=== PATIENT | male | born 1945 | race Caucasian/White ===

== ENCOUNTER 2020-09-04 11:35 | Outpatient (RCR) | payer MEDICARE, OTHER ==
[2020-11-22] MEDS ORDERED: LISI20TA26 PO (12:59)
[2020-11-29] MEDS ORDERED: ACET1TAB43 PO (10:32)
[2020-11-29] MEDS ORDERED: CIPR-226 PO (10:33)
== END 2020-12-03 | disposition home or self-care (01) ==
LOC: ONC 11:35
PROVIDERS: ATTEND Radiology Radiation Oncology
DX: C61 Malignant neoplasm of prostate (principal); E03.9 Hypothyroidism, unspecified; E78.5 Hyperlipidemia, unspecified
CPT/HCPCS: 76873; G0463; 99205

== ENCOUNTER → 2020-09-19 | Outpatient (CLI) | payer MEDICARE, OTHER ==
[~2020-09-19] MED LIST: IOHEXOL 350 MG/ML 100 ML (OMNIPAQUE 350) VIAL IV ONE
[2020-09-19 10:17] LABS: CREATININE SERUM 1.25 MG/DL (0.60-1.30)
[2020-09-19] MEDS: CATHETER FLUSH 10 ML SYR IV PRN ×2 (10:23→10:30)
--- NOTE | 2020-09-19 11:02 | Diagnostic Imaging Report ---
EXAMINATION: CT chest, abdomen and pelvis with intravenous contrast. TECHNIQUE: Multiple contiguous axial images were obtained through the chest, abdomen and pelvis after the uneventful administration of intravenous contrast. All CT scans use one or more of the following dose optimizing techniques: automated exposure control, MA and/or KvP adjustment based on patient size and exam type or iterative reconstruction. HISTORY: Prostate cancer. COMPARISON: None available. FINDINGS: There is no edema or pneumonia. No pleural effusion. No pneumothorax. No suspicious nodules. There is scarring or atelectasis in the left upper lobe. There is no axillary or supraclavicular lymphadenopathy. There is no mediastinal lymphadenopathy. Heart size is normal. There are moderate coronary artery calcifications. No pericardial effusion. 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 The liver is normal without focal lesion. There is no biliary ductal dilation. There is a small stone in the gallbladder. There is a vague area of high attenuation in the pancreatic head best seen on coronal series 601, image 26. No pancreatic ductal dilation. Spleen is normal. Adrenal glands are normal. There is an indeterminate 16 mm right lower pole renal lesion with an attenuation of 25 Hounsfield units. Simple cyst is seen in the right pelvis zone. There is no hydronephrosis. Urinary bladder is normal. Visualized bowel is normal in caliber without obstruction or inflammation. No free fluid or air. No abdominal or pelvic lymphadenopathy. Aorta is normal in caliber without aneurysm. There are no suspicious osseous lesions. IMPRESSION: 1. No metastatic disease seen in the chest, abdomen or pelvis. 2. Indeterminate vague area of high attenuation in the pancreatic head, pancreas protocol CT recommended for further evaluation. 3. Right lower pole renal lesion is indeterminate, sonogram to be performed to evaluate if this is a cyst, otherwise it could potentially be seen on the pancreas protocol CT indeterminate if there is enhancement. Dictated by: Dictated on workstation # [id number]
--- NOTE | 2020-09-19 14:11 | Diagnostic Imaging Report ---
INDICATION: Prostate cancer. TECHNIQUE: The patient received a 27.3 mCi intravenous dose of technetium 99M MDP. Three hours later, whole-body planar imaging was performed. COMPARISON: The study is interpreted in correlation with the CT chest, abdomen, and pelvis performed on 09/19/2020. FINDINGS: There is no suspicious uptake in the axial or appendicular skeleton. There are mild arthritic changes to the left greater than right knees, bilateral ankles, and bilateral shoulders. The sternomanubrium and ribs are unremarkable. The calvarium is unremarkable. The soft tissue uptake and excretion of radiopharmacy by urinary tracts are unremarkable. IMPRESSION: No bone scan evidence for osseous metastasis. Dictated by: Dictated on workstation # [id number]
== END ==
LOC: CARD 09:47
PROVIDERS: ATTEND Nurse Practitioner Family
DX: C61 Malignant neoplasm of prostate (principal)
CPT/HCPCS: 71260; 74177; 78306; 82565; 84520; A9503; 36415

== ENCOUNTER → 2020-09-26 | Outpatient (CLI) | payer MEDICARE ==
[~2020-09-26] MED LIST changes: +CATHETER FLUSH 10 ML SYR IV PRN; +HOLD METFORMIN - RECEIVED CONTRAST 20 ML VIAL IV SCH; +NS 100 ML (IVPB) BAG IV ONE
--- NOTE | 2020-09-26 15:09 | Diagnostic Imaging Report ---
PROCEDURE: CT abdomen with and without contrast. TECHNIQUE: Multiple contiguous axial CT images of the abdomen were obtained prior to and after intravenous administration of iodinated contrast. Auto Exposure Controls were utilized during the CT exam to meet ALARA standards for radiation dose reduction. INDICATION: Patient has a history of prostate cancer, recent CT performed 09/19/2020 showed a vague region of elevated density and enhancement in the pancreatic head. Patient returns for dedicated multiphase pre- and [id number] pancreatic protocol CT. FINDINGS: Most conspicuous on the initial arterial phase images is a ring-enhancing mass within the pancreatic head at the uncinate process measuring a diameter of 10.6 mm. At the portal venous phase, this shows homogeneous enhancement and is hyperdense to the remaining pancreatic parenchyma. Prior to contrast, this lesion is imperceptible, and on the recent CT, a 6-minute delayed hepatovenous phase acquisition shows the lesion to be imperceptible as well. Findings are suspicious for a hypervascular lesion such as a pancreatic neuroendocrine tumor. Correlate with any endocrinopathy. Vascular abnormality such as cavernous hemangioma is very rare in the pancreas but have been reported. There was no associated pancreatic parenchymal volume loss or appreciable mass effect. No pancreatic or biliary ductal dilatation. There are some stones adherent to the gallbladder wall versus a partial gallbladder wall mural calcification. The biliary system is otherwise normal. The liver was normal. There is no adrenal mass. The kidneys are unobstructed. The atherosclerotic aorta is nonaneurysmal. There is no ascites, abscess, hematoma, or acute fluid collection. There is no mesenteric or retroperitoneal lymphadenopathy. IMPRESSION: 1. Hypervascularized ring-enhancing lesion in the pancreatic head uncinate process without a detectable mass effect, ductal dilatation, or parenchymal atrophy. Lesion essentially follows vascular contrast density on each phase. Correlate with any endocrinopathy as an islet cell tumor or neuroendocrine tumor could not be excluded. As an additional possibility, this could reflect a vascular lesion such as hemangioma or other nonneoplastic vascular abnormality. 2. No evidence of metastatic disease. Focal gallbladder mural calcification versus more likely layering tiny dependent stones without evidence for acute cholecystitis. Dictated by: Dictated on workstation # [id number]
== END ==
LOC: RAD 14:45
PROVIDERS: ATTEND Radiology Radiation Oncology
DX: K86.89 Other specified diseases of pancreas (principal); R93.5 Abnormal findings on diagnostic imaging of other abdominal regions, including retroperitoneum; Z85.46 Personal history of malignant neoplasm of prostate
CPT/HCPCS: 74170

== ENCOUNTER 2020-11-22 05:34 | Outpatient (CLI) | payer MEDICARE ==
[~2020-11-22] VITALS: Ht 162 cm; Wt 61.0 kg
[2020-11-22] MEDS ORDERED: LISI20TA26 PO (12:59)
== END 2020-11-22 13:11 | disposition home or self-care (01) ==
LOC: PREOP 05:34
PROVIDERS: ATTEND Specialist
DX: Z01.818 Encounter for other preprocedural examination (principal)

== ENCOUNTER 2020-11-29 09:23 | Day surgery (SDC) | payer MEDICARE ==
[~2020-11-29] VITALS: Ht 162 cm; Wt 61.0 kg
[2020-11-29] VITALS (10 sets, daily range): BP systolic 103–142; BP diastolic 62–90
[~2020-11-29 09:23] MED LIST changes: -CATHETER FLUSH 10 ML SYR IV PRN; -HOLD METFORMIN - RECEIVED CONTRAST 20 ML VIAL IV SCH; -IOHEXOL 350 MG/ML 100 ML (OMNIPAQUE 350) VIAL IV ONE; +LISI20TA26 PO; -NS 100 ML (IVPB) BAG IV ONE
--- OUTSIDE RECORDS SUMMARY | 2020-11-29 09:27 | XMS REPORT | Clinical Summary ---
Author Author Marisela Dumont [place] Address Unknown Phone Unavailable Care Team Providers Care Sales And Marketing Administrator Name Role Phone Sherman Laureano MD PP Allergies No known active allergies Medications End Date Status Medication Sig Dispensed Refills Start Date Active lisinopril Take 20 mg by 0 (PRINIVIL,ZESTRIL) 20 mg mouth 2 (two) 8 tablet times per day. Active chlorthalidone (HYGROTON) Take 0.5 15 tablet 3 25 mg tablet tablets (12.5 9 mg total) by mouth 1 (one) time each day. Active pantoprazole (PROTONIX) Take 1 tablet 30 tablet 3 40 mg EC tablet (40 mg total) 9 by mouth 1 (one) time each day. Active Problems Problem Noted Date Abnormal nuclear cardiac imaging test 12/01/2018 Personal history of tobacco use 11/06/2018 Gastroesophageal reflux disease without esophagitis 11/06/2018 Arthritis of knee 10/29/2018 Mild chronic obstructive pulmonary disease 9 Osteoarthritis 10/29/2018 Essential hypertension 10/28/2018 Social History Date Tobacco Use Types Packs/Day Years Used Current Every Day Smoker Sex Assigned at Date Recorded Not on file Last Filed Vital Signs Reading Time Taken Comments Vital Sign 150/78 12/31/2018 1:01 PM CDT Blood Pressure 74 12/31/2018 12:53 PM CDT Pulse - - Temperature 16 12/31/2018 12:53 PM CDT Respiratory Rate - - Oxygen Saturation - - Inhaled Oxygen Concentration 63.6 kg (140 lb 3.2 oz) 12/31/2018 12:53 PM CDT Weight 162.6 cm (5' 4") 12/31/2018 12:53 PM CDT Height 24.07 12/31/2018 12:53 PM CDT Body Mass Index Plan of Treatment Health Maintenance Due Date Last Done Comments CT Colonography 1946 Cologuard 1945 Colonoscopy 1945 Colorectal Cancer 1945 Screening Lipid Panel 1946 Medicare Wellness 1945 MMR Vaccines (1 of 1 - 1947 Standard series) Varicella Vaccines (1 of 1947 2 - 2-dose childhood series) Pneumococcal 65+ Yr (1 of 02/09/1952 2 - PPSV23) COVID-19 Vaccine (1) 1958 Depression Screening 1958 DTaP,Tdap,and Td Vaccines 1965 (1 - Tdap) FOBT/FIT 1991 Sigmoidoscopy 1991 Zoster Vaccines (1 of 2) 02/09/1996 Abdominal Aortic Aneurysm 2011 (AAA) Screen Glaucoma Screening 65+ Yr 2011 Influenza Vaccine (#1) 2020 12/09/2017 HIB Vaccines Aged Out No longer eligible based on patient's age to complete this topic HPV Vaccines Aged Out No longer eligible based on patient's age to complete this topic Hepatitis A Vaccines Aged Out No longer eligibl e based on patient's age to complete this topic Hepatitis B Vaccines Aged Out No longer eligibl e based on patient's age to complete this topic IPV Vaccines Aged Out No longer eligible based on patient's age to complete this topic Meningococcal Vaccine Aged Out No longer eligib le based on patient's age to complete this topic Results Not on filefrom Last 3 Months Insurance Type Payer Benefit Subscriber ID Effective Phone Address Plan / Dates Group MEDICARE MEDICARE [id number] 2008- 2020 PART A AND Present [address] [place] [phone] [facility] [id number] 2018-P [address] [facility] [place] [facility] [place] [address] Advance Directives Patient Agile Test Lead Explanation Type Date Recorded Advance Directives and Living Will Power of Center Customer Service Associate Care Teams Start Date End Date Sales And Marketing Administrator Relationship Specialty 08/13/18 Sherman Laureano MD PCP - General Pediatrics [address] [place], [place] [id number]
[2020-11-29] MEDS: LACTATED RINGERS 1,000 ML IV PRN ×2 (09:54→13:17)
--- NOTE | 2020-11-29 10:31 | Progress Note-Pre Operative ---
Pre-Operative Progress Note H&P Reviewed The H&P was reviewed, patient examined and no changes noted. Date Seen by Provider: Nov 29, 2020 Time Seen by Provider: 10: Date H&P Reviewed: Nov 29, 2020 Time H&P Reviewed: :30 Pre-Operative Diagnosis: Prostate cancer cT2b, PSA 12.4, [place] 7 (3+4) SAAD LANDON MD Nov 29, 2020 10:31
[2020-11-29] MEDS ORDERED: ACET1TAB43 PO (10:32)
[2020-11-29] MEDS ORDERED: CIPR-226 PO (10:33)
--- NOTE | 2020-11-29 10:35 | Discharge Inst-Simple/Standard ---
Discharge Inst-Standard Reconcile Patient Problems Problems Reviewed?: Yes Discharge Medications New, Converted or Re-Newed RX: RX Given to Pt/Family Patient Instructions/Follow Up Plan of Care/Instructions/FU: 1)One month post implant scan at [facility] cancer center 12/27/20 at 9:00 a.m. 2)One month follow up with Dr. Camarena 12/26/20 at 1:15 p.m. Activity as Tolerated: Yes Discharge Diet: No Restrictions Other Inst to Patient Please instruct patient on catheter care and removal on Friday12/04/20 in the morning. SAAD LANDON MD Nov 29, 2020 10:35
[2020-11-29] MEDS ORDERED: BACITRACIN OINTMENT 28 GM TUBE ONE (11:27)
[2020-11-29] MEDS ORDERED: SEVOFLURANE (ULTANE) 15 ML INHAL SOLN ONE ×2 (11:54→13:07)
[2020-11-29] MEDS ORDERED: fentaNYL INJ 100 MCG/2 ML AMP ONE (11:54)
[2020-11-29] MEDS ORDERED: proPOfol 200 MG/20 ML (DIPRIVAN) VIAL IV ONE (11:54)
[2020-11-29] MEDS ORDERED: ONDANSETRON 4 MG/2 ML (SDV) Z0FRAN ONE (11:54)
[2020-11-29] MEDS ORDERED: MIDAZOLAM 2 MG/2 ML (VERSED) VIAL ONE (11:55)
[2020-11-29] MEDS ORDERED: PHENYLEPHRINE 100 MCG/ML 10 ML (ANESTHESIA) SYR ONE (12:50)
[2020-11-29] MEDS ORDERED: IOPAMIDOL 61% 30 ML (ISOVUE 300) VIAL URETERAL ONE (13:05)
--- NOTE | 2020-11-29 13:25 | Progress Note-Post Operative ---
Post-Operative Progess Note Surgeon (s)/Endless Belt Finisher (s) Surgeon SAAD LANDON MD Endless Belt Finisher: Best CRISTOBAL MD Pre-Operative Diagnosis Prostate cancer cT2b, PSA 12.4, [place] 7 (3+4) Post-Operative Diagnosis Same as pre-op Procedure & Operative Findings Date of Procedure 11/29/20 Procedure Performed/Findings (1) 67% Cesium 131 permanent prostate seed implant (2) Injection of biodegradable hydrogel prostate-rectal spacer utilizing the Vquencee system (3) Cystogram Prostate volume 24.3 cc Anesthesia Type General Estimated Blood Loss Estimated blood loss (mL): Minimal Specimens/Packing Specimens Removed None Packing: None SAAD LANDON MD Nov 29, 2020 13:24
[2020-11-29] MEDS ORDERED: HYDROmorphone 2 MG/ML VIAL (DILAUDID) IV ONE (13:30)
[2020-11-29] MEDS ORDERED: ONDANSETRON 4 MG/2 ML (SDV) Z0FRAN IVP PRN (13:30)
--- NOTE | 2020-11-29 13:54 | Diagnostic Imaging Report ---
INDICATION: Brachytherapy. COMPARISON: CT dated 09/26/2020. TOTAL FLUORO TIME: 9 seconds. TOTAL NUMBER OF FLUOROSCOPIC IMAGES SAVED: 1 FINDINGS: Fluoroscopic guidance was provided intraoperatively during brachytherapy. Fluoroscopic image provided shows multiple metallic radiation seeds projecting over the lower midline pelvis. Indwelling Hunter catheter is identified, as is contrast within the urinary bladder. Please note, interpreting radiologist was not present during the procedure. IMPRESSION: 1. Fluoroscopic guidance provided intraoperatively as above. Dictated by: Dictated on workstation # [id number]
[2020-11-29] MEDS ORDERED: APAP 300 MG/CODEINE 30 MG (TYLENOL #3) TAB PO ONE (15:00)
--- NOTE | 2020-11-29 15:13 | Anesthesia-General Post-Op ---
General Patient Condition Mental Status/LOC: Same as Preop Cardiovascular: Satisfactory Nausea/Vomiting: Absent Respiratory: Satisfactory Pain: Controlled Complications: Absent Post Op Complications Complications None Follow Up Care/Instructions Patient Instructions None needed. Anesthesia/Patient Condition Patient Condition Patient is doing well, no complaints, stable vital signs, no apparent adverse anesthesia problems. No complications reported per nursing. D/C home per [facility] Criteria: Yes NILDA PECK CRNA Nov 29, 2020 15:13
== END 2020-11-29 15:45 | disposition home or self-care (01) ==
LOC: SDC 09:23
PROVIDERS: ATTEND Radiology Radiation Oncology
DX: C61 Malignant neoplasm of prostate (principal); I10 Essential (primary) hypertension; F17.210 Nicotine dependence, cigarettes, uncomplicated; J44.9 Chronic obstructive pulmonary disease, unspecified; M19.90 Unspecified osteoarthritis, unspecified site; E78.5 Hyperlipidemia, unspecified; E03.9 Hypothyroidism, unspecified; Z79.890 Hormone replacement therapy; Z79.899 Other long term (current) drug therapy; Z98.890 Other specified postprocedural states
CPT/HCPCS: 55874; 55876; 76000; 76965; 77290; 77318; 77332; 77370; 77470; 77778; 87081; C1715 ×2; C1889; C2643

== ENCOUNTER 2021-02-23 09:50 | Outpatient (RCR) | payer MEDICARE, OTHER ==
[~2021-02-23 09:50] MED LIST changes: +ACET1TAB43 PO; +CIPR-226 PO
== END 2021-03-09 | disposition home or self-care (01) ==
LOC: ONC 09:50
PROVIDERS: ATTEND Radiology Radiation Oncology
DX: Z51.0 Encounter for antineoplastic radiation therapy (principal); C61 Malignant neoplasm of prostate; E03.9 Hypothyroidism, unspecified; E78.5 Hyperlipidemia, unspecified; Z80.42 Family history of malignant neoplasm of prostate; F17.210 Nicotine dependence, cigarettes, uncomplicated
CPT/HCPCS: 77290; 77295; 77300; 77301; 77334; 77336; 77338; 77385; 77470

== ENCOUNTER 2021-03-22 09:45 | Outpatient (RCR) | payer MEDICARE, OTHER | END 2021-04-09 | disposition home or self-care (01) | LOC: ONC 09:45 | PROVIDERS: ATTEND Radiology Radiation Oncology | DX: Z51.0 Encounter for antineoplastic radiation therapy (principal); C61 Malignant neoplasm of prostate; I10 Essential (primary) hypertension; E03.9 Hypothyroidism, unspecified; E78.5 Hyperlipidemia, unspecified; J44.9 Chronic obstructive pulmonary disease, unspecified; Z80.42 Family history of malignant neoplasm of prostate; F17.210 Nicotine dependence, cigarettes, uncomplicated | CPT/HCPCS: 77336 ==

== ENCOUNTER → 2021-04-18 | Outpatient (CLI) | payer MEDICARE, OTHER ==
[~2021-04-18] MED LIST changes: +HOLD METFORMIN - RECEIVED CONTRAST 20 ML VIAL IV SCH; +IOHEXOL 350 MG/ML 100 ML (OMNIPAQUE 350) VIAL IV ONE; +NS 100 ML (IVPB) BAG IV ONE
[2021-04-18 11:38] LABS: CREATININE SERUM 1.08 MG/DL (0.60-1.30)
--- NOTE | 2021-04-18 12:37 | Diagnostic Imaging Report ---
PROCEDURE: CT abdomen with and without contrast. TECHNIQUE: Multiple contiguous axial CT images of the abdomen were obtained prior to and after intravenous administration of iodinated contrast. Auto Exposure Controls were utilized during the CT exam to meet ALARA standards for radiation dose reduction. INDICATION: Pancreatic head lesion. COMPARISON: 09/26/2020 FINDINGS: Similar to the previous study, there is an approximately 1.1 cm rounded focus of hyperenhancement in the pancreatic head. Again there is no evidence of pancreatic ductal dilatation. No pancreatic inflammation or other lesion is identified. No focal hepatic or splenic abnormality is identified. Gallbladder demonstrates hyperdense material in the fundus which may represent stones or sludge. No adrenal gland lesion is identified. Renal cortical cysts are seen bilaterally without hydronephrosis. There is no evidence of pathologic adenopathy. No free fluid is noted. IMPRESSION: No appreciable change in 1.1 cm hyperenhancing focus in the pancreatic head. This does washout on delayed images and considerations continue to include vascular lesion or hyperenhancing pancreatic tumor such as islet cell tumor correlation with laboratory values would be of use. Additional short-term follow-up CT with pancreatic protocol or possible pancreatic MRI may be of use for further evaluation. Dictated by: Dictated on workstation # [id number]
== END ==
LOC: RAD 11:15
PROVIDERS: ATTEND Nurse Practitioner Family
DX: K86.9 Disease of pancreas, unspecified (principal)
CPT/HCPCS: 36415; 74170; 82565; 84520

== ENCOUNTER → 2021-05-11 | Outpatient (CLI) | payer MEDICARE ==
[~2021-05-11] MED LIST changes: +GADOTERATE 0.5 MMOL/ML (CLARISCAN) 15 ML VIAL IV ONE; -HOLD METFORMIN - RECEIVED CONTRAST 20 ML VIAL IV SCH; -IOHEXOL 350 MG/ML 100 ML (OMNIPAQUE 350) VIAL IV ONE; -NS 100 ML (IVPB) BAG IV ONE
--- NOTE | 2021-05-11 16:06 | Diagnostic Imaging Report ---
EXAMINATION: MRI of the abdomen with and without contrast. TECHNIQUE: Multiplanar, multisequence MR images of the abdomen were obtained with and without intravenous contrast. HISTORY: Pancreatic head lesion evaluation. COMPARISON: None available. FINDINGS: Liver: The liver is normal in signal and smooth in contour. There is no focal hepatic mass. The portal and hepatic veins are patent. Gallbladder and Bile Ducts: There is no intrahepatic or extrahepatic bile duct dilation. There are no filling defects in the gallbladder or common bile duct. Pancreas: There is a 1.0 cm minimally T2 hyperintense and T1 hypointense lesion within the pancreatic head (series 16, image 16). Evaluation of this lesion is somewhat limited secondary to patient respiratory motion throughout the exam and small lesion size. The lesion demonstrates mild restricted diffusion. No definitive enhancement is seen. No pancreatic ductal dilatation. Pancreas is otherwise normal in volume. Kidneys: Multiple bilateral renal cysts are present. No suspicious enhancing renal lesion or hydronephrosis. Adrenal glands: There is no adrenal gland nodule or thickening. Spleen: The spleen is normal in size without focal lesion. Lymph Nodes: There is no suspicious lymphadenopathy. Other: There is no ascites. IMPRESSION: 1. Stable 1.0 cm indeterminate lesion within the pancreatic head. The lesion is incompletely characterized on postcontrast images secondary to motion. If more definitive characterization is needed, this lesion may be amenable to EUS guided biopsy. The lesion does not appear significantly changed in size from 09/26/2020 given differences in technique between CT and MRI. Dictated by: Dictated on workstation # [id number]
== END ==
LOC: RAD 14:00
PROVIDERS: ATTEND Nurse Practitioner Family
DX: K86.9 Disease of pancreas, unspecified (principal)
CPT/HCPCS: 74183

== ENCOUNTER 2021-05-31 09:23 | Outpatient (RCR) | payer MEDICARE, OTHER ==
[~2021-05-31 09:23] MED LIST changes: -GADOTERATE 0.5 MMOL/ML (CLARISCAN) 15 ML VIAL IV ONE
== END 2021-06-07 | disposition home or self-care (01) ==
LOC: ONC 09:23
PROVIDERS: ATTEND Radiology Radiation Oncology
DX: Z12.5 Encounter for screening for malignant neoplasm of prostate (principal); C61 Malignant neoplasm of prostate; I10 Essential (primary) hypertension; E03.9 Hypothyroidism, unspecified; E78.5 Hyperlipidemia, unspecified; J44.9 Chronic obstructive pulmonary disease, unspecified; Z80.42 Family history of malignant neoplasm of prostate; F17.210 Nicotine dependence, cigarettes, uncomplicated
CPT/HCPCS: G0103; G0463; 84153; 99213